=== PATIENT | male | born 1945 | race Caucasian/White ===

== ENCOUNTER 2024-05-26 11:01 | Outpatient (CLI) | payer MEDICARE, OTHER | END 2024-05-26 11:02 | disposition home or self-care (01) | LOC: CT 11:01 | PROVIDERS: ATTEND Surgery | DX: K44.9 Diaphragmatic hernia without obstruction or gangrene (principal); R91.8 Other nonspecific abnormal finding of lung field; K76.9 Liver disease, unspecified; I25.10 Atherosclerotic heart disease of native coronary artery without angina pectoris; J43.2 Centrilobular emphysema; I70.8 Atherosclerosis of other arteries; J98.4 Other disorders of lung | CPT/HCPCS: 36415; 71260; 74160; 82565 ==